=== PATIENT | female | born 1960 | race Two or more races ===

== ENCOUNTER 2018-09-02 13:13 | Emergency (ER) | payer MEDICAID ==
[~2018-09-02] VITALS: Ht 162.6 cm; Wt 120.0 kg
[~2018-09-02 13:13] MED LIST: CHOL100046 PO; FERR325C PO
[2018-09-02] MEDS ORDERED: meclizine 12.5mg tablet PO ONE (13:55)
[2018-09-02] MEDS ORDERED: LORazepam 2 mg/ml vial IV ONE (13:55)
[2018-09-02] MEDS ORDERED: lactulose 20gm/30ml cup PO ONE (14:40)
[2018-09-02 14:47] LABS: BASOPHILS # (AUTO) 0.1 X10'3 (0-0.2); BASOPHILS % (AUTO) 0.8 % (0-1); EOSINOPHILS # (AUTO) 0.2 X10'3 (0-0.9); EOSINOPHILS % (AUTO) 2.9 % (0-6); HEMATOCRIT 38.1 % (35.0-45.0); HEMOGLOBIN 12.7 g/dl (12.0-16.0); LYMPHOCYTES # (AUTO) 1.5 X10'3 (1.1-4.8); LYMPHOCYTES % (AUTO) 20.8 % (21-51); MEAN CORPUSCULAR HEMOGLOBIN 28.6 PG (27.0-31.0); MEAN CORPUSCULAR HGB CONC 33.4 % (33.0-36.5); MEAN CORPUSCULAR VOLUME 85.6 FL (78-98); MEAN PLATELET VOLUME 8.8 FL (7.4-10.4); MONOCYTES # (AUTO) 0.4 X10'3 (0-0.9); MONOCYTES % (AUTO) 6.1 % (2-12); NEUTROPHILS # (AUTO) 4.9 X10'3 (1.8-7.7); NEUTROPHILS % (AUTO) 69.4 % (42-75); PLATELET COUNT 239 X10'3 (140-440); RED BLOOD COUNT 4.45 X10'6 (4.20-5.60); RED CELL DISTRIBUTION WIDTH 13.2 % (11.5-14.5); WHITE BLOOD COUNT 7.1 X10'3 (4.5-11.0)
[2018-09-02] MEDS ORDERED: MECL-111 PO (14:56)
[2018-09-02 15:06] LABS: URINE HCG NEGATIVE (NEG)
[2018-09-02 15:08] LABS: CLARITY,URINE SLIGHTLY CLOUDY (Clear); COLOR,URINE YELLOW (Yellow); GLUCOSE, URINE NEGATIVE (Neg); KETONES,URINE TRACE mg/dl (Neg); LEUKOCYTE ESTERASE ,URINE TRACE (Neg); NITRITES, URINE NEGATIVE (Neg); OCCULT BLOOD,URINE NEGATIVE (Neg); PH,URINE 5.5 (4.8-8.0); PROTEIN,URINE TRACE mg/dl (Neg); UROBILINOGEN,URINE 0.2 E.U/dL (0.2-1.0)
[2018-09-02 15:11] LABS: ALANINE AMINOTRANSFERASE 28 U/L (12-78); ALBUMIN/GLOBULIN RATIO 1.3 (1.1-1.5); ALKALINE PHOSPHATASE 78 IU/L (46-116); ANION GAP 8 (8-16); ASPARTATE AMINO TRANSFERASE 16 U/L (10-37); BILIRUBIN,TOTAL 0.3 MG/DL (0.1-1.0); BLOOD UREA NITROGEN 13 MG/DL (7-18); BUN/CREATININE RATIO 14.8 (6.6-38.0); CALCIUM 10.3 MG/DL (8.5-10.1); CHLORIDE 105 MMOL/L (99-107); CREATININE 0.88 MG/DL (0.40-0.90); GLUCOSE 122 MG/DL (70-104); LIPASE 189 U/L (73-393); POTASSIUM 4.1 MMOL/L (3.5-5.1); SODIUM 139 MMOL/L (135-145); TOTAL CARBON DIOXIDE 26.1 MMOL/L (24-32); TOTAL PROTEIN 7.2 G/DL (6.4-8.2); eGFR 66 ML/MIN
[2018-09-02 15:14] LABS: UA COLLECTION TYPE CLN CATCH MIDSTREAM
[2018-09-02 15:16] LABS: HYALINE CASTS 0-3 /LPF (NEGATIVE); SQUAMOUS EPITHELIAL CELL,UR FEW /LPF (FEW); TRANSITIONAL EPI CELLS,URINE FEW /HPF
[2018-09-02 15:17] LABS: CAL OXALATE CRYSTALS 4+ /HPF (NEGATIVE)
[2018-09-02 15:18] LABS: BACTERIA,URINE FEW /HPF (Neg); MUCUS STRANDS FEW /LPF (Neg); RBC,URINE NONE SEEN /HPF (0-2)
[2018-09-02 15:44] VITALS: BP 149/79
== END 2018-09-02 15:47 | disposition home or self-care (01) ==
LOC: ER 13:14
DX: H81.10 Benign paroxysmal vertigo, unspecified ear (principal); E11.9 Type 2 diabetes mellitus without complications; Z79.899 Other long term (current) drug therapy
CPT/HCPCS: 36415; 70450; 80053; 81001; 81025; 83690; 85025; 85610; 87088; 96374; 99285; J2060; J8597

== ENCOUNTER 2019-02-13 13:49 | Emergency (ER) | payer MEDICAID ==
[~2019-02-13] VITALS: Ht 165.1 cm; Wt 130.0 kg
[~2019-02-13 13:49] MED LIST changes: +MECL-111 PO
[2019-02-13] MEDS ORDERED: dexamethasone sod phosphate 10mg/ml inj IM STA (14:13)
[2019-02-13] MEDS ORDERED: ketorolac trometh. 30mg/ml inj. IM ONE (14:15)
[2019-02-13] MEDS ORDERED: ketorolac trometh inj. 60 MG/2 ML VIAL IM ONE (14:15)
[2019-02-13] MEDS ORDERED: CELE200C PO (15:17)
[2019-02-13] MEDS ORDERED: TRAM50TA2 PO (15:17)
[2019-02-13] MEDS ORDERED: METH4TAB81 PO (15:17)
[2019-02-13 15:27] VITALS: BP 163/87
[2019-02-14] MEDS ORDERED: ACET-812 PO (13:22)
[2019-02-14] MEDS ORDERED: IBUP-1984 PO (13:22)
[2019-02-14] MEDS ORDERED: LIDO700A32 TOP (13:22)
== END 2019-02-13 15:29 | disposition home or self-care (01) ==
LOC: ER 13:49
DX: M54.5 Low back pain (principal); E11.9 Type 2 diabetes mellitus without complications; Z79.899 Other long term (current) drug therapy
CPT/HCPCS: 96372; 99283; J1100; J1885

== ENCOUNTER 2024-02-22 01:04 | Emergency (ER) | payer MEDICAID ==
[~2024-02-22] VITALS: Ht 165.1 cm; Wt 113.6 kg
[~2024-02-22 01:04] MED LIST changes: +ACET-812 PO; +CELE200C PO; +LIDO700A32 TOP; -MECL-111 PO; +MECL-302 PO; +METH4TAB81 PO
[2024-02-22 01:06] VITALS: BP 155/82; PULSE 68; RESP 16; TEMP 98; O2SAT 100
[2024-02-22] MEDS: acetaminophen 1,000mg/100ml IV 100 ML IV STA (01:51)
[2024-02-22] MEDS: ketorolac trometh. 30mg/ml inj. IV ONE (01:51)
== END 2024-02-22 03:32 | disposition home or self-care (01) ==
LOC: ER 01:04
DX: M79.652 Pain in left thigh (principal); M79.651 Pain in right thigh; I10 Essential (primary) hypertension; E11.9 Type 2 diabetes mellitus without complications; Z79.1 Long term (current) use of non-steroidal anti-inflammatories (NSAID); Z79.899 Other long term (current) drug therapy
CPT/HCPCS: 96374; 96375; 99284; J0131; J1885

== ENCOUNTER 2024-12-11 10:59 | Emergency (ER) | payer MEDICAID ==
[~2024-12-11] VITALS: Ht 165.1 cm; Wt 115.0 kg
[2024-12-11 15:22] LABS: BASOPHILS % (AUTO) 0.5 % (0-1); EOSINOPHILS % (AUTO) 0.4 % (0-6); HEMATOCRIT 40.9 % (35.0-45.0); HEMOGLOBIN 13.5 g/dl (12.0-16.0); LYMPHOCYTES % (AUTO) 23.7 % (21-51); MEAN CORPUSCULAR HEMOGLOBIN 29.1 PG (27.0-31.0); MEAN CORPUSCULAR HGB CONC 33.1 g/dL (33.0-36.5); MEAN CORPUSCULAR VOLUME 87.9 FL (78-98); MEAN PLATELET VOLUME 8.9 FL (7.4-10.4); MONOCYTES # (AUTO) 0.6 X10'3 (0-0.9); MONOCYTES % (AUTO) 14.3 % (2-12); NEUTROPHILS # (AUTO) 2.6 X10'3 (1.8-7.7); NEUTROPHILS % (AUTO) 61.1 % (42-75); PLATELET COUNT 184 X10'3 (140-440); RED BLOOD COUNT 4.65 X10'6 (4.20-5.60); RED CELL DISTRIBUTION WIDTH 13.3 % (11.5-14.5); WHITE BLOOD COUNT 4.2 X10'3 (4.5-11.0)
[2024-12-11] MEDS: acetaminophen w/codeine (30MG) #3 tablet PO ONE (15:23)
[2024-12-11] MEDS: ketorolac trometh 30MG/ML vial 30 MG/ML VIAL IV ONE (15:24)
[2024-12-11] MEDS: ondansetron/PF 4mg/2ml inj IV ONE (15:24)
[2024-12-11] MEDS: normal saline 1000ml 1,000 ML IV ONE (15:24)
[2024-12-11] MEDS: proMETHazine 25mg tablet PO ONE (15:47)
[2024-12-11 16:17] LABS: TOTAL CARBON DIOXIDE 23.4 MMOL/L (24-32)
[2024-12-11 16:37] LABS: ALANINE AMINOTRANSFERASE 29 U/L (12-78); ALBUMIN 3.8 G/DL (3.4-5.0); ALKALINE PHOSPHATASE 61 IU/L (46-116); ANION GAP 10 (8-16); ASPARTATE AMINO TRANSFERASE 37 U/L (10-37); BILIRUBIN,TOTAL 0.3 MG/DL (0.1-1.0); BLOOD UREA NITROGEN 10 MG/DL (7-18); BUN/CREATININE RATIO 11.8 (10.0-20.0); C-REACTIVE PROTEIN 3.07 MG/DL (0.0-0.5); CHLORIDE 104 MMOL/L (99-107); CREATININE 0.85 MG/DL (0.40-0.90); GLUCOSE 96 MG/DL (70-104); POTASSIUM 3.6 MMOL/L (3.5-5.1); SODIUM 137 MMOL/L (135-145); TOTAL PROTEIN 7.7 G/DL (6.4-8.2); eCRCL 61 ML/MIN; eGFR 68 ML/MIN
[2024-12-11] MEDS: LIDOcaine 2% Viscous 15ml cup MM PRN (17:26)
[2024-12-11] MEDS ORDERED: PROM118S5 PO (18:15)
[2024-12-11] MEDS ORDERED: ACET1TAB96 PO (18:15)
[2024-12-11] MEDS ORDERED: ONDA-243 PO (18:15)
[2024-12-11] MEDS ORDERED: DICY20TA17 PO (18:15)
[2024-12-11 18:17] VITALS: BP 142/90; PULSE 73; RESP 15; TEMP 99; O2SAT 95
[2024-12-11] MEDS ORDERED: LIDO20SO16 PO (18:38)
== END 2024-12-11 18:35 | disposition home or self-care (01) ==
LOC: ER 10:59
DX: B34.9 Viral infection, unspecified (principal); M79.10 Myalgia, unspecified site; I10 Essential (primary) hypertension; E11.9 Type 2 diabetes mellitus without complications; Z20.822 Contact with and (suspected) exposure to COVID-19
CPT/HCPCS: 36415; 71045; 80053; 83605; 84145; 84484; 85025; 85651; 86140; 87040; 87502; 87503; 87811; 93005; 96361; 96374; 96375; 99285; J1885; J2405; J7030; Q0169